=== PATIENT | female | born 1940 | race Caucasian/White ===

== ENCOUNTER → 2017-08-03 | Outpatient (CLI) | payer MEDICARE ==
[~2017-08-03] MED LIST: ALBUTEROL/ATROVENT INH; ESTR42.5V PV; LEVO75TA3 PO; LOSA25TA31 PO; SIMV20TA OR; SYMB160A INH; TOPA25TA8 PO; TRIA3AER; ZOLP10TA3 OR
== END ==
LOC: HRSP 10:23
PROVIDERS: ATTEND Internal Medicine
DX: J44.9 Chronic obstructive pulmonary disease, unspecified (principal)
CPT/HCPCS: 94060; 94618; 94726; 94729